=== PATIENT | female | born 1995 | race Caucasian/White ===

== ENCOUNTER 2020-04-03 17:15 | Outpatient (REF) | payer MEDICAID, SELFPAY ==
[2020-04-03 18:28] LABS: Basophils Percent Auto 0.4 % (0-2); Eosinophils Absolute Auto 0.1 X10*3/uL (0.0-0.4); Eosinophils Percent Auto 0.8 % (0-4); Hematocrit 40.3 % (37-47); Hemoglobin 13.2 g/dl (12.0-16.0); Imm Gran Abs Auto 0.02 X10*3/uL (0.00-0.03); Imm Gran Pct Auto 0.2 % (0.0-0.4); Lymphocytes Absolute Auto 1.9 X10*3/uL (1.2-4.9); Lymphocytes Percent Auto 23.1 % (20-40); MANUAL DIFF FLAG NO; Mean Corpuscular HGB Conc 32.8 g/dl (31.0-35.0); Mean Corpuscular Hemoglobin 29.8 pg (27.0-33.0); Monocytes Absolute Auto 0.5 X10*3/uL (0.1-1.2); Monocytes Percent Auto 6.3 % (2-11); Neutrophils Absolute Auto 5.7 X10*3/uL (2.0-8.3); Neutrophils Percent Auto 69.2 % (45-73); Platelet Count 340 X10*3/uL (160-400); Red Blood Count 4.43 X10*6/uL (4.20-5.50); Red Cell Distribution Width 11.9 % (11.0-16.0); White Blood Count 8.2 X10*3/uL (4.8-10.8)
[2020-04-03 18:46] LABS: Alanine Aminotransferase 10 U/L (0-31); Albumin Level 4.6 g/dL (3.5-5.0); Alkaline Phosphatase 85 U/L (39-117); Anion Gap 12 (12-20); Aspartate Amino Transferase 13 U/L (5-31); Bilirubin Total 0.4 mg/dL (0.0-1.0); Blood Urea Nitrogen 11 mg/dL (9-16); C Reactive Protein 0.12 mg/dL (< or = 0.50); Calcium 9.5 mg/dL (8.4-10.2); Carbon Dioxide 29 mmol/L (22-29); Chloride 103 mmol/L (96-108); Estimated Glomerular Filt Rate > 60; Glucose Random 77 mg/dL (60-115); Potassium 3.9 mmol/l (3.3-5.1); Sodium 140 mmol/L (135-145); Total Protein 7.8 g/dL (6.5-8.0)
[2020-04-03 19:35] LABS: Erythrocyte Sedimentation Rate 16 MM/HR (0-20)
[2020-04-03 19:53] LABS: CDIFF Ag Negative (Negative); CDIFF Internal ctrl Dots and bkg OK (V); CDiff Toxin Negative (Negative)
[2020-04-05 17:07] LABS: Immunoglobulin A 247 mg/dL (47-310)
[2020-04-06 22:10] LABS: Transglutaminase Ab IgG 1 U/mL; Transglutaminase IgA 1 U/mL
[2020-04-07 15:01] LABS: Gliadin Deamidated IgA Ab 4 Units; Gliadin Deamidated IgG Ab 2 Units
[2020-04-10 13:02] LABS: Endomysial IgA Antibody Negative (Negative)
== END 2020-04-03 17:16 | disposition home or self-care (01) ==
LOC: HO.LAB 17:15
PROVIDERS: Visit Provider Internal Medicine Gastroenterology
DX: K92.1 Melena (principal)
CPT/HCPCS: 36415; 80053; 82784; 83516; 83631; 85025; 85652; 86140; 86255; 86256; 87324; 87329; 87338; 87449

== ENCOUNTER → 2020-04-11 13:34 | Outpatient (BNVA) | payer MEDICAID, SELFPAY | PROVIDERS: Visit Provider Internal Medicine Gastroenterology | DX: K52.9 Noninfective gastroenteritis and colitis, unspecified (principal); K29.70 Gastritis, unspecified, without bleeding; K64.8 Other hemorrhoids; Z98.890 Other specified postprocedural states | CPT/HCPCS: 99212 ==

== ENCOUNTER 2020-04-17 16:54 | Outpatient (REF) | payer MEDICAID, SELFPAY | END 2020-04-17 16:55 | disposition home or self-care (01) | LOC: HO.LAB 16:54 | PROVIDERS: Visit Provider Internal Medicine | DX: Z20.828 Contact with and (suspected) exposure to other viral communicable diseases (principal) | CPT/HCPCS: 87635 ==

== ENCOUNTER → 2020-05-27 08:10 | Outpatient (BNVA) | payer MEDICAID, SELFPAY | PROVIDERS: PCP Internal Medicine; Visit Provider Internal Medicine Gastroenterology | DX: Z76.89 Persons encountering health services in other specified circumstances (principal) | CPT/HCPCS: 91110 ==

== ENCOUNTER → 2020-06-16 11:58 | Outpatient (BNVA) | payer MEDICAID, SELFPAY | PROVIDERS: PCP Internal Medicine; Referring Provider Internal Medicine; Visit Provider Internal Medicine Gastroenterology | DX: Z76.89 Persons encountering health services in other specified circumstances (principal) ==

== ENCOUNTER 2020-08-21 12:30 | Outpatient (REF) | payer MEDICAID, SELFPAY | END 2020-08-21 12:31 | disposition home or self-care (01) | LOC: HO.LAB 12:30 | PROVIDERS: Visit Provider Internal Medicine | DX: Z20.822 Contact with and (suspected) exposure to COVID-19 (principal) | CPT/HCPCS: 36415; C9803; U0003; U0005 ==

== ENCOUNTER 2020-11-12 11:57 | Outpatient (REF) | payer MEDICAID, SELFPAY ==
[2020-11-12 12:24] LABS: COVID-19 Test Negative (Negative)
== END 2020-11-12 11:58 | disposition home or self-care (01) ==
LOC: HO.LAB 11:57
PROVIDERS: Visit Provider Internal Medicine
DX: Z20.822 Contact with and (suspected) exposure to COVID-19 (principal)
CPT/HCPCS: 36415; 87635; C9803

== ENCOUNTER 2021-05-10 17:55 | Emergency (ER) | payer MEDICAID, SELFPAY ==
--- NOTE | ~2021-05-10 | CT_ITS ---
EXAMINATION: CT HEAD WITHOUT CONTRAST CT FACIAL BONES WITHOUT CONTRAST CT CERVICAL SPINE WITHOUT CONTRAST CLINICAL INFORMATION: Head trauma. Soft trauma with laceration. Fracture? Softball trauma. COMPARISON: None. TECHNIQUE: Imaging was performed from the skull base to vertex without intravenous administration of contrast. In addition, helical noncontrast CT imaging was acquired through the cervical spine and facial bones and source images were reviewed along with axial reconstructions and sagittal and coronal MPRs. This CT examination was performed using dose optimization techniques as appropriate, variously including the following: *Automated exposure control *Adjustment of mA and/or kV according to patient size (this includes techniques or standardized protocols for targeted exams where dose is matched to indication/reason for exam; i.e. extremities or head) *Use of iterative reconstruction technique Total exam dose-length product [id number] mGy-cm FINDINGS: HEAD: No intracranial mass, hemorrhage, or midline shift is visualized. The ventricles and sulci are age-appropriate. No extra-axial collections are identified. FACIAL BONES: There is a left frontal laceration with soft tissue gas, series 26 image 28/23. There is a subjacent nutrient channel in the left frontal bone but no fracture. There is bilateral ethmoid and frontal sinus mucosal thickening. Right maxillary sinus mucosal thickening and a mucosal cyst or polyp are seen. No evidence of acute sinusitis or hemosinus. CERVICAL SPINE: Straightening of the normal cervical lordosis. Normal prevertebral soft tissues. No fracture or traumatic malalignment. No cervical lymphadenopathy or fluid collection. Lung apices are clear. CT/CT cervical spine wo con IMPRESSION: Left frontal supraorbital soft tissue swelling and soft tissue gas consistent with a laceration. No orbital or facial fracture seen. No acute intracranial abnormality. No acute traumatic osseous abnormality of the cervical spine.
[2021-05-10 18:00] VITALS: BP 131/74; PULSE 99; RESP 18; TEMP 36.2; O2SAT 98; BMI 28.3
--- NOTE | 2021-05-10 18:41 | ED_ITS ---
HPI - Wound/Laceration General Chief Complaint: Wound/Laceration Stated Complaint: eyebrow lac Time Seen by Provider: 05/10/21 18:20 Source: patient Mode of arrival: ambulatory Limitations: no limitations History of Present Illness HPI narrative: 26-year-old female presents to ED for left forehead laceration due to being hit by softball. Patient states ball was hit by batter and hit the ground and wound up hitting her in the head. Patient denies falling to the ground or loss of consciousness. Patient unknown last tetanus shot. Patient denies any history of brain bleed. Related Data Previous Rx's Medication Instructions Recorded bisacodyl 5 mg tablet,delayed 10 mg PO ONCE 1 Days #2 tab 05/20/20 release (Dulcolax (bisacodyl)) polyethylene glycol 3350 17 238 g PO .COMPLEX 1 Days #238 g 05/20/20 gram/dose oral powder (Miralax) rifaximin 550 mg tablet 550 mg PO TID 14 Days #42 tab 06/23/20 ciprofloxacin HCl 500 mg tablet 500 mg PO BID 14 Days #28 tab 09/02/20 (Cipro) Allergies Allergy/AdvReac Type Severity Reaction Status Date / Time No Known Allergies Allergy Verified 05/10/21 18:00 [No Known Allergies*] Review of Systems Review of Systems: Yes all other systems are reviewed and are negative Constitutional: Constitutional: Reports as per HPI and Reports no additional constitutional complaints Comments: Facial laceration Eyes: Eyes: Reports as per HPI and Reports no additional eye complaints ENT: Reports system reviewed and no additional complaints, except as documented and Reports as per HPI Cardiovascular: Cardiovascular: Reports as per HPI and Reports no additional cardiovascular complaints Respiratory: Respiratory: Reports as per HPI and Reports no additional respiratory complaints Gastrointestinal: Gastrointestinal: Reports as per HPI and Reports no additional gastrointestinal complaints Genitourinary: Genitourinary: Reports no additional female genitourinary complaints and Reports as per HPI Musculoskeletal: Musculoskeletal: Reports no additional musculoskeletal complaints and Reports as per HPI Neurologic: Reports system reviewed and no additional complaints, except as documented and Reports as per HPI Psychiatric: Psychiatric: Reports no additional psychiatric complaints and Reports as per HPI PMFSH Past Medical History Surgical History (Updated 06/16/20 @ 11:59 by Anna Saucedo CMA) History of colonoscopy Hx of anterior cruciate ligament tear reconstruction Hx of endoscopy Family History Family History (Updated 04/11/20 @ 14:13 by Anna Saucedo CMA) Father History of hypertension Mother No problems noted. Social History Social History (Updated 06/16/20 @ 11:59 by Anna Saucedo CMA) Alcohol intake: current Alcohol intake frequency: holidays/special occasions only Advance Directives: No Advance Directives Information Provided: No Patient : No Physical Exam Vital Signs: Vital Signs: Last Vital Signs Temp 97.2 F 05/10/21 18:00 Pulse 99 05/10/21 18:00 Resp 18 05/10/21 18:00 BP 131/74 05/10/21 18:00 Pulse Ox 98 05/10/21 18:00 Body Mass Index 28.3 Const: General: cooperative, healthy appearing, comfortable, no acute distress, well developed, alert, awake and Physically active Orientation/consciousness: patient oriented x3 HENMT: Head: Yes normal to inspection, Yes No palpable skull fracture present and Yes normocephalic Head images: 1. Superficial laceration with active bleeding. Rest of HEENT normal Eyes: General: appearance normal, both eyes and all related structures Neck: Neck: Yes normal visual inspection, Yes full ROM, Yes no ly mphadenopathy, Yes no meningeal signs, Yes trachea midline, Yes supple and No tender Chest: Chest palpation & inspection: normal inspection of the chest and normal palpation of entire chest wall Resp: Effort & Inspection: normal respiratory effort and able to speak in complete sentences Auscultation: clear to auscultation bilaterally Cardio: Jugular venous distension: no JVD Heart sounds: S1 normal heart sound present and S2 normal heart sound present GI: Inspection: Yes normal to inspection and No abdominal wall ecchymosis Palpation (GI): Soft to palpation, not firm, nontender, no guarding and not rigid : General: No CVA tenderness and Yes no CVA tenderness Back/Spine/Pelvis: Back: no CVA tenderness, No CVA tenderness and No back tenderness Skin: General skin exam: no rashes or lesions noted and elasticity normal Neuro: General: patient oriented x3, gait normal, no meningeal signs and CN's II-XI intact bilaterally Cranial nerves: Yes CN's II-XII intact bilaterally Extrem: General: Yes normal to inspection and Yes full ROM Psych: Appearance: grossly normal, well kempt and not disheveled Course Course Course Narrative: Patient of images and left eyebrow laceration repair. Reevaluation(s) Reevaluation #1: CT scan came back negative for any facial fractures, skull fracture or brain bleed. Facial laceration cleaned with sterile saline Betadine iodine. 5 mL of lidocaine 2% anesthesia was used into wound. 1 absorbable suture placed in deep tissue for better closure size 4 nylon suture used for superifcial layers. Five sutures placed. Time: 20:26 MDM - Wound/Laceration MDM Narrative Medical decision making narrative: Facial laceration Discharge Plan Discharge Clinical Impression: Laceration of face Patient Disposition: Home, Self-Care Instructions: Laceration (ED) Additional Instructions: Your facial laceration should be removed in 7 days. Return to the ED for any headache, dizziness, nausea, vomiting, redness, pus discharge, foul odor, fever, chills, or any other concerning symptoms. Please follow-up with primary care provider Prescriptions: No Action polyethylene glycol 3350 [Miralax] 17 gram/dose powder 238 g PO .COMPLEX 1 Days Qty: 238 RF: 0 bisacodyl [Dulcolax (bisacodyl)] 5 mg tablet,delayed release (DR/EC) 10 mg PO ONCE 1 Days Qty: 2 RF: 0 rifaximin 550 mg tablet 550 mg PO TID 14 Days Qty: 42 RF: 0 ciprofloxacin HCl [Cipro] 500 mg tablet 500 mg PO BID 14 Days Qty: 28 RF: 0 Interventions: ED Discharge Assessment Last Done: 05/10/21 20:33 Discharge Date/Time: 05/10/21 20:46 Print Language: Romansh
[2021-05-10] MEDS: Diphth,Pertus(ACell),Tet Adult 0.5 ML SYRINGE IM (19:11)
[2021-05-10] MEDS: Lidocaine HCl 2 % MPF 5 ML VIAL INFILTRATI (19:16)
== END 2021-05-10 20:46 | disposition home or self-care (01) ==
PROVIDERS: Emergency Provider Internal Medicine
DX: S01.81XA Laceration without foreign body of other part of head, initial encounter (principal); W21.07XA Struck by softball, initial encounter; Y93.9 Activity, unspecified; Y92.9 Unspecified place or not applicable; Y99.9 Unspecified external cause status
CPT/HCPCS: 12051; 70450; 70486; 72125; 90471; 90715; 99284

== ENCOUNTER 2021-05-19 08:50 | Emergency (ER) | payer MEDICAID, SELFPAY ==
[2021-05-19 08:58] VITALS: BP 104/66; PULSE 82; RESP 18; TEMP 36.4; O2SAT 97; BMI 28.3
--- NOTE | 2021-05-19 09:19 | ED.WOUNDLAC ---
HPI - Wound/Laceration General Chief Complaint: Wound/Laceration Stated Complaint: suture removal Time Seen by Provider: 05/19/21 09:09 Source: patient Mode of arrival: ambulatory Limitations: no limitations History of Present Illness HPI narrative: 26-year-old female presenting for suture removal. She was seen here on May 10 when she was struck in the left eye with a softball effort ricocheted off a rock. She sustained a laceration above her left eyebrow and required 5 sutures for wound closure in addition to 1 deep absorbable suture. She reports adequate wound healing without any redness, warmth or drainage. She has been using topical Mederna for scarring. Onset (ago): day(s) Location: face Place: outdoors Patient tetanus UTD: Yes Context: accidental Associated symptoms: loss of feeling/numbness Treatments prior to arrival: bandage and other (topical scarring ointment) Related Data Previous Rx's Medication Instructions Recorded bisacodyl 5 mg tablet,delayed 10 mg PO ONCE 1 Days #2 tab 05/20/20 release (Dulcolax (bisacodyl)) polyethylene glycol 3350 17 238 g PO .COMPLEX 1 Days #238 g 05/20/20 gram/dose oral powder (Miralax) rifaximin 550 mg tablet 550 mg PO TID 14 Days #42 tab 06/23/20 ciprofloxacin HCl 500 mg tablet 500 mg PO BID 14 Days #28 tab 09/02/20 (Cipro) Allergies Allergy/AdvReac Type Severity Reaction Status Date / Time No Known Allergies Allergy Verified 05/10/21 18:00 [No Known Allergies*] Review of Systems Review of Systems: Constitutional: No Fever, No Chills Eyes: No Eye Pain, No Swelling, No Redness Gastrointestinal: No Nausea, No Vomiting Skin: +Skin Lesions, No rash Neuro: + Numbness, No Dizziness, No Headache Psych: + Anxiety/Panic, No Depression Heme/Lymph: No Bruising, No Lymphadenopathy PMFSH Past Medical History Medical History (Updated 05/19/21 @ 09:20 by JASPAL Gomez) No known health problems Surgical History (Updated 06/16/20 @ 11:59 by Anna Saucedo CMA) History of colonoscopy Hx of anterior cruciate ligament tear reconstruction Hx of endoscopy Family History Family History (Updated 04/11/20 @ 14:13 by Anna Saucedo CMA) Father History of hypertension Mother No problems noted. Social History Social History (Updated 06/16/20 @ 11:59 by Anna Saucedo CMA) Alcohol intake: current Alcohol intake frequency: holidays/special occasions only Advance Directives: No Physical Exam Vital Signs: Vital Signs: Last Vital Signs Temp 97.5 F 05/19/21 08:58 Pulse 82 05/19/21 08:58 Resp 18 05/19/21 08:58 BP 104/66 05/19/21 08:58 Pulse Ox 97 05/19/21 08:58 Body Mass Index 28.3 Appearance: Alert. Oriented X3. No acute distress. HEENT: well healing linear laceration above left eyebrow with [address], wound margins are well approximated and healing appropriately. No erythema, discharge. Wound is tender to palpation. CVS: Normal heart rate and rhythm. Pulses normal. Respiratory: No respiratory distress. Skin: Skin warm and dry. Normal skin color. Normal skin turgor. No rashes. Extremities: atraumatic x4, normal ROM Neuro: Oriented X 3. Grossly normal, nonfocal. Course Course Course Narrative: 26-year-old female presenting for suture removal. She had 5 sutures placed on May 10. Wound is healing appropriately. She is upset with the redness and scarring. She is using topical scarring cream. We discussed additional measures a computed help scarring. All 5 sutures were successfully removed with appropriate wound healing. She is stable for discharge home with outpatient follow-up as needed. Critical Care Time Critical Care Time Critical Care Time: No Discharge Plan Discharge Clinical Impression: Encounter for removal of sutures Patient Disposition: Home, Self-Care Instructions: Stitches Removal (ED) Additional Instructions: Can you to use topical ointment for scarring found [id number], uses several times per day. Uses for several weeks to months to help with scarring. Follow-up with your doctor as needed. Prescriptions: No Action polyethylene glycol 3350 [Miralax] 17 gram/dose powder 238 g PO .COMPLEX 1 Days Qty: 238 RF: 0 bisacodyl [Dulcolax (bisacodyl)] 5 mg tablet,delayed release (DR/EC) 10 mg PO ONCE 1 Days Qty: 2 RF: 0 rifaximin 550 mg tablet 550 mg PO TID 14 Days Qty: 42 RF: 0 ciprofloxacin HCl [Cipro] 500 mg tablet 500 mg PO BID 14 Days Qty: 28 RF: 0 Interventions: ED Discharge Assessment Last Done: 05/19/21 09:26 Discharge Date/Time: 05/19/21 09:27
== END 2021-05-19 09:27 | disposition home or self-care (01) ==
PROVIDERS: Emergency Provider Emergency Medicine Emergency Medical Services
DX: Z48.02 Encounter for removal of sutures (principal)
CPT/HCPCS: 99283

== ENCOUNTER 2025-04-17 09:54 | Outpatient (REF) | payer MEDICAID, SELFPAY ==
--- OUTSIDE RECORDS SUMMARY | 2025-04-17 09:15 | XMS_ITS | Encounter Summary ---
Author Organization [email or web address] Address [address] [place] [address] [address], [place] [address] Care Team Providers Care Communication Signals Intelligence Name Role Phone Frances Norris MD Primary Care Provider + Encounter Details Date Type Department Care Team (Late st Contact Info) Description 04/17/2025 9:15 AM EDT Office Visit [facility] [address] [place] [address] Winifred Marsh CNM [address], [place] [id number] Vaginal odor (Primary Dx); Rash; Screening examination for venereal disease; Routine cervical smear Social History Tobacco Use Types Packs/Day Years Used Date Smoking Tobacco: Never Passive Smoke Exposure: Never Smokeless Tobacco: Never Alcohol Use Standard Drinks/Week Comments Never 0 (1 standard drink = 0.6 oz pur e alcohol) Depression Answer Date Recorded Patient Health Questionnaire-9 Score 0 12/15/2022 Housing Stability Answer Date Recorded What is your housing situation today? I have angelo daly 05/09/[address] you li ve. Do you have problems with any of the following? None of the above 05/09/2023 Food Insecurity Answer Date Recorded Within the past 12 months, y ou worried that your food would run out before you got money to buy more: Never True 05/09/2023 Within the past 12 months,th e food you bought just didn't last and you didn't have enough money to get more: Never True 12/2022 Transportation Answer Date Recorded In the past 12 months, has l ack of transportation kept you from medical appts, meetings, work or from getting things needed for daily living? No 05/09/2023 Utilities Answer Date Recorded In the past 12 months, has t he electric, gas, oil or water company threatened to shut off services in your home? No 05/09/2023 Depression Answer Date Recorded Patient Health Questionnaire-2 Score 0 12/15/2022 Comments Unknown Intention Date Recorded Ambivalent about becoming (find ing) 04/17/2025 Sex and Gender Information Value Date Recorded Sex Assigned at Female 05/03/2022 10:24 AM EDT Legal Sex Female 10:24 AM EDT Gender Identity Female 11/15/2022 6:15 PM EDT Sexual Orientation Choose not to disclose 2022 6:18 PM EDT documented as of this encounter Last Filed Vital Signs Vital Sign Reading Time Taken Comments Blood Pressure 100/70 04/17/2025 9:33 AM EDT Pulse 82 04/17/2025 9:33 AM EDT Temperature 36.3 C (97.4 F) 04/17/2025 9:33 AM EDT Respiratory Rate 13 04/17/2025 9:33 AM EDT Oxygen Saturation 97% 04/17/2025 9:33 AM EDT Inhaled Oxygen Concentration - - Weight 80.7 kg (178 lb) 04/17/2025 9:33 AM EDT Height - - Body Mass Index - - documented in this encounter Progress Notes * Winifred Marsh CNM - 04/17/2025 9:15 AM EDT Subjective Patient ID: Warren Demacro is a 29 y.o. female who presents for vaginal symptoms Notes vaginal odor and genital skin changes for a while. No other vaginal, urinary or pelvic symptoms. 1 new AMAB partner, would like STI testing today. Declines control. Also notes chronic stomach issues, would like followup on this. No pap on file. She thinks last pap was at [facility] 2 y ago. Agrees to pap today. Review of Systems Genitourinary: Negative for dyspareunia, dysuria, hematuria, pelvic pain, vaginal bleeding, vaginaldischarge and vaginal pain. Skin: Positive for rash. Objective BP 100/70 (BP Location: Left arm, Patient Position: Sitting, BP Cuff Size: Adult) Pulse 82 Temp97.4 ??F (36.3 ??C) (Oral) Resp 13 Wt 178 lb (80.7 kg) LMP 03/17/2025 (Approximate) SpO2 97% Physical Exam Scrape Gatherer present: declines lens inserter. Constitutional: Appearance: Normal appearance. Genitourinary: General: Normal vulva. Labia: Right: No rash, tenderness, lesion or injury. Left: No rash, tenderness, lesion or injury. Vagina: Normal. No signs of injury and foreign body. No vaginal discharge, erythema, tenderness, bleeding or lesions. Cervix: No discharge, friability, lesion, erythema, cervical bleeding or eversion. Rectum: Anal fissure and external hemorrhoid present. Comments: Scaly plaque above clitoral rodriguez, possible eczema [place] skin with anal fissue Skin: Comments: 2-3cm area of pink skin above gluteal cleft. She reports this is very itchy, area of skinhad sloughed off. No exudate or streaking Neurological: Mental Status: She is alert. Psychiatric: Mood and Affect: Mood normal. Behavior: Behavior normal. Assessment/Plan Diagnoses and all orders for this visit: Vaginal odor - POCT fern test, vaginal fluid manually resulted No obvious vaginitis on wet mount. Will treat bacterial vaginosis/ yeast if noted on pap. Pap basedSTI testing sent today. Rash Possible eczema. For short course of hydrocortisone ointment. Avoid scented products. Followup withPCP or WIC if no improvement in 1-2 weeks or if symptoms worsen. Screening examination for venereal disease - Hepatitis C Antibody with Reflex to HCV, RNA, Quantitative, Real-Time PCR; Future - Syphilis Screen; Future - HIV-1/2 Antigen and Antibodies, Fourth Generation, with Reflexes; Future Pap based and serum labs ordered. Briefly discussed PrEP. May return any time if interested. Routine cervical smear - Pap Smear Pap today. Repeat 3 y if normal. Other orders - hydrocortisone 1 % ointment; Apply topically 2 times daily. Schedule appointment with PCP af front office java developer to followup on GI concerns. documented in this encounter Plan of Treatment Upcoming Encounters Date Type Department Care Team (Late st Contact Info) Description 06/12/2025 10:30 AM EST Office Visit [facility] [address] [place] [address] Frances Norris MD [address] [place] [address] Scheduled Orders Name Type Priority Associated Diagnoses Orde r Schedule Pap Smear Pathology and Cytology Routine Routine cervical smear Ordered: 04/17/2025 Hepatitis C Antibody with Reflex to HCV, RNA, Quantitative, Real-Time PCR Lab Routine Screening examination for venereal disease Expected: 04/17/2025 (Approximate), Expires: 04/17/2026 Syphilis Screen Lab Routine Screening examination for venereal disease Expected: 04/17/2025 (Approximate), Expires: 04/17/2026 HIV-1/2 Antigen and Antibodies, Fourth Generation, with Reflexes Lab Routine Screening examination for venereal disease Expected: 04/17/2025 (Approximate), Expires: 04/17/2026 documented as of this encounter Procedures Procedure Name Priority Date/Time Associated Diagnosis Comments POCT WET MOUNT/WILDA Routine 04/17/2025 9: 58 AM EDT Vaginal odor documented in this encounter Results * POCT fern test, vaginal fluid manually resulted (04/17/2025 9:58 AM EDT) WILDA Prep Negative Comment:pH 4.5, neg whiff, n eg clue, neg trich, neg yeast, neg wbc Vaginal Fluid Vaginal structure / Unknown 04/17/2025 9:58 AM EDT Winifred Marsh CNM POINT OF CARE TEST ENTER/ EDIT ORDERABLES Final Result documented in this encounter Visit Diagnoses Diagnosis Vaginal odor- Primary Unspecified symptom associated with female genital organs Rash Rash and other nonspecific skin eruption Screening examination for venereal disease Routine cervical smear Screening for malignant neoplasm of the cervix documented in this encounter Additional Health Concerns Assessment Noted Time PHQ-9 Depression Total Score: 0 12/16/19 23 11:40 AM EDT documented as of this encounter Care Teams Communication Signals Intelligence Relationship Specialty Start Date End Date Frances Norris MD [address] [place] [id number] PCP - General Internal Medicine 12/30/23 documented as of this encounter
--- OUTSIDE RECORDS SUMMARY | 2025-04-17 11:41 | XMS_ITS | Clinical Summary ---
Author Organization [facility] Address [address] [place] [id number] Phone Care Team Providers Care Still Runner Name Role Phone Pcp, Unknown Primary Care Provider Unavailabl e Allergies No known active allergies Medications No known medications Active Problems Problem Noted Date Diagnosed Date Frequent bowel movements 07/29/2023 Overview (07/29/2023): Sudden onset of frequent bowel movements, triggered anytime she eats without watery diarrhea Assessment & Plan (07/29/2023 1:07 PM EST): No relationship to menstrual cycle, she was hoping to see a scrap charger. I have recommended she try eliminating all dairy for 4 weeks and reassess her symptoms. If it is not effective try eliminating all gluten. She has seen GI in the past has had colonoscopy no etiology found. Social History Tobacco Use Types Packs/Day Years Used Date Smoking Tobacco: Never Smokeless Tobacco: Never Tobacco Cessation:Counseling Given: Not Answered Alcohol Use Standard Drinks/Week Comments Not Currently 0 (1 standard drink = 0.6 oz pur e alcohol) socially Education Answer Date Recorded Are you interested in more education? Not on jones e 07/26/2023 Are you concerned about learning? Not on file 07/26/2023 No 07/26/2023 No 07/26/2023 Digital Access Answer Date Recorded No 07/26/2023 No 07/26/2023 Reliable internet access at home? Not on file 07/26/2023 Device with a working camera? Not on file Comments No Sex and Gender Information Value Date Recorded Sex Assigned at Not on file Legal Sex Female 2:12 PM EST Gender Identity Female 07/27/2023 3:38 PM EST Sexual Orientation Not on file Last Filed Vital Signs Vital Sign Reading Time Taken Comments Blood Pressure 106/76 07/29/2023 10:19 AM EST Pulse - - Temperature - - Respiratory Rate - - Oxygen Saturation - - Inhaled Oxygen Concentration - - Weight 79.8 kg (176 lb) 07/29/2023 10:19 AM EST Height - - Body Mass Index - - Plan of Treatment Health Maintenance Due Date Last Done Comments DEPRESSION SCREENING 2008 HEPATITIS C SCREENING 2014 HIV ONE-TIME SCREENING (18-6 5 YEARS) 2014 PAP SMEAR 2017 INFLUENZA VACCINE (#1) 2025 9, 09/09/2015 COVID-19 VACCINE (2024-2 6 season) 2025 Adult Td,Tdap Booster 05/10/2031 05/10/2021 , 06/19/2019, 07/03/2009 SMOKING STATUS SCREENING (On ce After 26 Yrs) Completed 07/29/2023 HEPATITIS A VACCINES Aged Out No long er eligible based on patient's age to complete this topic HIB VACCINES Aged Out No longer eligi ble based on patient's age to complete this topic MENINGOCOCCAL VACCINES (ACWY) Aged Out No longer eligible based on patient's age to complete this topic MENINGOCOCCAL VACCINES (B) Aged Out N o longer eligible based on patient's age to complete this topic PNEUMOCOCCAL VACCINES (0-49 years) Aged Out No longer eligible b ased on patient's age to complete this topic Medical Devices Not on file Insurance [facility] C3 ACO C3 ACO C3 ACO [facility] C3 ACO Care Teams Still Runner Relationship Specialty Start Date End Date Pcp, Unknown PCP - General 07/26/23 Additional Source Comments The information contained in this document represents components of the legal health record. It is not the complete legal health record.[facility]
--- OUTSIDE RECORDS SUMMARY | 2025-04-17 11:41 | XMS_ITS | Encounter Summary ---
Author Organization [employer] Address [address] [facility] [address] [place] [address] Care Team Providers Care Rail Car Loader Name Role Phone Frances Norris MD Primary Care Provider + Encounter Details Date Type Department Care Team (Latest Contact Info) Description 04/17/2025 Travel Social History Tobacco Use Types Packs/Day Years Used Date Smoking Tobacco: Never Passive Smoke Exposure: Never Smokeless Tobacco: Never Alcohol Use Standard Drinks/Week Comments Never 0 (1 standard drink = 0.6 oz pur e alcohol) Depression Answer Date Recorded Patient Health Questionnaire-9 Score 0 12/15/2022 Housing Stability Answer Date Recorded What is your housing situation today? I have angelo kauffman 05/09/[address] you li [...] Health Questionnaire-2 Score 0 12/15/2022 Comments Unknown Sex and Gender Information Value Date Recorded Sex Assigned at Female 05/03/2022 10:24 AM EDT Legal Sex Female 10:24 AM EDT Gender Identity Female 11/15/2022 6:15 PM EDT Sexual Orientation Choose not to disclose 2022 6:18 PM EDT documented as of this encounter Plan of Treatment Upcoming Encounters Date Type Department Care Team (Late st Contact Info) Description 06/12/2025 10:30 AM EST Office Visit [facility] MED[facility] [address] [place] [address] Frances Norris MD [address] [place] [address] documented as of this encounter Visit Diagnoses Not on filedocumented in this encounter Additional Health Concerns Assessment Noted Time PHQ-9 Depression Total Score: 0 12/16/19 23 11:40 AM EDT documented as of this encounter Care Teams Rail Car Loader Relationship Specialty Start Date End Date Frances Norris MD [address] [place] [phone] PCP - General Internal Medicine 12/30/23 documented as of this encounter
--- OUTSIDE RECORDS SUMMARY | 2025-04-17 11:41 | XMS_ITS | Encounter Summary ---
Author Organization [employer] Address [address] [place] [address] [address] [address] Care Team Providers Care Strategic Intelligence Officer Name Role Phone Frances Norris MD Primary Care Provider + Reason for Visit * Reason Onset Date Comments chart prep 04/16/2025 Encounter Details Date Type Department Care Team (Late st Contact Info) Description 04/16/2025 Telephone [facility] MEDICINE [address] [place] [address] Winifred Marsh CNM [address] [place] [address] chart prep Social History Tobacco Use Types Packs/Day Years Used Date Smoking Tobacco: Never Passive Smoke Exposure: Never Smokeless Tobacco: Never Alcohol Use Standard Drinks/Week Comments Never 0 (1 standard drink = 0.6 oz pur e alcohol) Depression Answer Date Recorded Patient Health Questionnaire-9 Score 0 12/15/2022 Housing Stability Answer Date Recorded What is your housing situation today? I have angelojonnie kauffman 05/09/[address] you [...] PM EDT documented as of this encounter Miscellaneous Notes * Telephone Encounter - Perla Saucedo [place] - 04/16/2025 12:42 PM EDT ..Chart Prep Labs: not applicable Images: not applicable Vaccines due: Covid Due and Flu Due Referrals: Not Applicable Screenings: LMP Overdue care gaps: Sbirt, SDOH, PHQ9, GAD7, and Disability documented in this encounter Plan of Treatment Upcoming Encounters Date Type Department Care Team (Late st Contact Info) Description 06/12/2025 10:30 AM EST Office Visit [facility] MEDICINE [address] [place] [address] Frances Norris MD [address] [place] [address] documented as of this encounter Visit Diagnoses Not on filedocumented in this encounter Additional Health Concerns Assessment Noted Time PHQ-9 Depression Total Score: 0 12/16/19 23 11:40 AM EDT documented as of this encounter Care Teams Strategic Intelligence Officer Relationship Specialty Start Date End Date Frances Norris MD [address] [place] [phone] PCP - General Internal Medicine 12/30/23 documented as of this encounter
--- OUTSIDE RECORDS SUMMARY | 2025-04-17 11:41 | XMS_ITS | Clinical Summary ---
Author Organization [facility] Address [address] [place] [address] Phone Care Team Providers Care Director Of Publications Name Role Phone Unavailable Primary Care Provider Unavailabl e Immunizations Immunization Administration Dates Next Due DTaP 5 10/17/2001, 8,1996,10/11,1996 H1N1 07/03/2009 HPV, Quadrivalent 09/04/2012,01/15/2011,07/03/20 09 Hep A, ped/adol 09/26/2014,01/15/2011 Hep B, ped/adol 1996,1996,1996 Hib (PRP-T) 10/28/1997, 7,1996,08/07 IPV 10/17/2001 Influenza Split 09/04/2012 Influenza, injectable, quadr ivalent, preservative free 04/05/2014 Influenza, injectable, trivalent 07/03/2009 MMR 10/12/2001,04/19/1997 Meningococcal Conj (Menactra) MCV4P 09/26/2014,1 OPV 1996,1996,1996 Tdap 07/03/2009 Family History Relation Name Status Comments Brother Alive Brother: Alive and well Father Alive Father: Hyperte nsion Mother Mother: Osteoar thritis, Hypertension, Asthma Other No family histo ry of *Sudden /[place] under 55, No family history of *Dental caries, No family history of *CVA/Stroke, No family history of *Thrombophilia, Family history of *Heart Disease Sister 1 Alive Sister: Asthma, Hypertension Sister 2 Sister: Asthma, Hypertension Social History Tobacco Use Types Packs/Day Years Used Date Smoking Tobacco: Never Comments:Never smoker Comments Unknown Sex and Gender Information Value Date Recorded Sex Assigned at Not on file Legal Sex Female 4:53 PM EDT Gender Identity Not on file Sexual Orientation Not on file Last Filed Vital Signs Vital Sign Reading Time Taken Comments Blood Pressure 102/68 09/26/2014 12:00 AM EDT Pulse 72 09/26/2014 12:00 AM EDT Temperature 37.1 C (98.7 F) 04/05/2014 12:00 AM EDT Respiratory Rate - - Oxygen Saturation - - Inhaled Oxygen Concentration - - Weight 64.9 kg (143 lb) 09/26/2014 12:00 AM EDT Height 163.6 cm (5' 4.4 ) 09/26/2014 12:00 AM ED T Body Mass Index 24.24 09/26/2014 12:00 AM EDT Plan of Treatment Health Maintenance Due Date Last Done Comments Varicella Vaccines (1 of 2 - 13+ 2-dose series) 2009 DTaP,Tdap,and Td Vaccines (7 - Td or Tdap) 07/03/2019 07/03/2009, 10/17/2001, 10/28/1997, Additional history exists Influenza Vaccines (#1) 2025 04/05/20 14, 09/04/2012, 07/03/2009 COVID-19 Vaccine (2024- season) 2025 Hepatitis B Vaccines Completed 1996, 1996, 1996 HIB Vaccines Completed 10/28/1997, 12/02, 1996, Additional history exists MMR Vaccines Completed 10/12/2001, 04/19/1997 IPV Vaccines Completed 10/17/2001, 12/02, 1996, Additional history exists HPV Vaccines Completed 09/04/2012, 01/01, 07/03/2009 Hepatitis A Vaccines Completed 09/26/2014, 01/16/20 11 Meningococcal Vaccine Completed 09/26/2014, 009 Men B Vaccine Aged Out No longer elig ible based on patient's age to complete this topic Pneumococcal Vaccine Aged Out No long er eligible based on patient's age to complete this topic
--- OUTSIDE RECORDS SUMMARY | 2025-04-17 11:41 | XMS_ITS | Encounter Summary ---
Author Organization [facility] Address [address] [place] [phone] Phone Care Team Providers Care Tariff Publishing Agent Name Role Phone Simi Edouard MD Primary Care Provider [phone] Encounter Details Date Type Department Care Team (Late st Contact Info) Description 02/17/2017 Conversion Encounter [facility] [place] [address] [place] [address] Social History Tobacco Use Types Packs/Day Years Used Date Smoking Tobacco: Never Comments:Never smoker Comments Unknown Sex and Gender Information Value Date Recorded Sex Assigned at Not on file Legal Sex Female 4:53 PM EDT Gender Identity Not on file Sexual Orientation Not on file documented as of this encounter Plan of Treatment Not on file documented as of this encounter Visit Diagnoses Not on filedocumented in this encounter Care Teams Tariff Publishing Agent Relationship Specialty Start Date End Date Simi Edouard MD [address] [place] [address] PCP - General 02/11/17 10/13/22 documented as of this encounter
--- OUTSIDE RECORDS SUMMARY | 2025-04-17 11:41 | XMS_ITS | Encounter Summary ---
Author Organization [facility] Address [address] [place] [address] Phone Care Team Providers Care Director Of Managed Care Name Role Phone Simi Edouard MD Primary Care Provider [phone] Encounter Details Date Type Department Care Team (Late st Contact Info) Description 01/26/2013 Documentation [facility] [place] [facility] [address] [place] [address] Family Medicine, Physician [address] [place], [place] [address] Social History Tobacco Use Types Packs/Day Years Used Date Smoking Tobacco: Never Assessed Comments Unknown Sex and Gender Information Value Date Recorded Sex Assigned at Not on file Legal Sex Female 4:53 PM EDT Gender Identity Not on file Sexual Orientation Not on file documented as of this encounter Plan of Treatment Not on file documented as of this encounter Visit Diagnoses Not on filedocumented in this encounter Care Teams Director Of Managed Care Relationship Specialty Start Date End Date Simi Edouard MD [address] [place] [address] [place] [address] PCP - General 02/11/17 10/13/22 documented as of this encounter
--- OUTSIDE RECORDS SUMMARY | 2025-04-17 11:41 | XMS_ITS | Encounter Summary ---
Author Organization [facility] Address [address] [place] [phone] Phone Care Team Providers Care Scleroscope Tester Name Role Phone Simi Edouard MD Primary Care Provider [phone] Encounter Details Date Type Department Care Team (Late st Contact Info) Description 01/19/2013 Documentation [facility] [place] [facility] [address] [place] [address] Family Medicine, Physician [address] [place], [place] [phone] Social History Tobacco Use Types Packs/Day Years [...] on filedocumented in this encounter Care Teams Scleroscope Tester Relationship Specialty Start Date End Date Simi Edouard MD [address] [place] [address] [place] [address] PCP - General 02/11/17 10/13/22 documented as of this encounter
--- OUTSIDE RECORDS SUMMARY | 2025-04-17 11:41 | XMS_ITS | Encounter Summary ---
Author Organization [employer] Address [address] [place] [address] [address] Care Team Providers Care Field Sales Trainer Name Role Phone Frances Norris MD Primary Care Provider + Reason for Visit * Reason Onset Date Comments Nurse Triage 04/12/2025 Encounter Details Date Type Department Care Team (Late st Contact Info) Description 04/12/2025 Telephone [facility] MEDICINE [address] [place] [address] Frances Norris MD [address] [place] [address] Nurse Triage Social History Tobacco Use Types Packs/Day Years [...] encounter Miscellaneous Notes * Telephone Encounter - Jaclyn Glynn RN - 04/12/2025 10:56 AM EDT T/C placed to pt to triage. Pt reports change in vaginal odor. Pt states that, it doesn't smell bad, just different . Pt denies vaginal itching or new discharge. Is not on control. Last menseswas around the beginning of last month per pt. Pt reports no new sexual partners, is sexually active but has not had sex, in a long time . Pt also reports, white spots one on clitoral rodriguez and oneat top of intergluteal cleft. She reports Hx of eczema, she doesn't know if they are eczema or not.Pt declined WIC today or tomorrow. Accepted appt for Next Tuesday 04/17 with Winifred BARRAZA. Pt agrees with disposition. Protocol Used: Vaginal Symptoms (Adult) Protocol-Based Disposition: See in Office or Video Visit within 3 Days Positive Triage Question: * Patient wants to be seen * All higher-acuity triage questions were negative Care Advice Discussed: * Causes of Vaginal Odor: * Genital Hygiene * Reasons To Call Back - Rash or severe itching - Yellow or green vaginal discharge - You become worse * Telephone Encounter - Katelyn Delarosa - 04/12/2025 10:31 AM EDT Symptom: Vaginal Symptoms - Not Bleeding Outcome: Schedule an appointment to be seen within 24 hours Reason: Caller denied all higher acuity questions The caller accepted this outcome. Contact pt at [phone] documented in this encounter Plan of Treatment Upcoming Encounters Date Type Department Care Team (Late st Contact Info) Description 06/12/2025 10:30 AM EST Office Visit [facility] MEDICINE [address] [place] [phone] Frances Norris MD [address] [place] [phone] documented as of this encounter Visit Diagnoses Not on filedocumented in this encounter Additional Health Concerns Assessment Noted Time PHQ-9 Depression Total Score: 0 12/16/19 23 11:40 AM EDT documented as of this encounter Care Teams Field Sales Trainer Relationship Specialty Start Date End Date Frances Norris MD [address] [place] [phone] PCP - General Internal Medicine 12/30/23 documented as of this encounter
--- OUTSIDE RECORDS SUMMARY | 2025-04-17 11:41 | XMS_ITS | Clinical Summary ---
Author Organization [employer] Address [address] [place] [address] [address] [place] [address] Care Team Providers Care Glove Tagger Name Role Phone Frances Norris MD Primary Care Provider + Allergies No known active allergies Medications ascorbic acid (Vitamin C) 500 MG tabletIndicatio ns:Iron deficiency TAKE 1 TABLET BY MOUTH IN THE MORNING. 90 tablet 1 3 Active hydrocortisone 1 % ointment Apply topically 2 times daily. 28 g 1 5 Active Active Problems Problem Noted Date Diagnosed Date Diarrhea 11/15/2022 Assessment & Plan (11/15/2022 8:11 PM EDT): IBD? Patient needs to go back to GI, new referral in place. Rx Imodium to use prn Order labs to ro celiac disease, infectious, overgrowth etc. Keep meals diary. ELIJAH bruce new PCP in 1m , appt card given to patient Encounters Date Type Department Care Team Description 04/17/2025 9:15 AM EDT Office Visit [facility] MEDICINE [address] [place] [phone] Winifred Marsh CNM Vaginal odor (Primary Dx); Rash; Screening examination for venereal disease; Routine cervical smear 04/17/2025 Travel 04/16/2025 Telephone [facility] MED[facility]INE [address] [place] [phone] Winifred Marsh CNM chart prep 04/12/2025 Telephone [facility] [address] [place] [address] [phone] Frances Norris MD Nurse Triage from Last 3 Months Social History Tobacco Use Types Packs/Day Years Used Date Smoking Tobacco: Never Passive Smoke Exposure: Never Smokeless Tobacco: Never Tobacco Cessation:Counseling Given: No Alcohol Use Standard Drinks/Week Comments Never 0 [...] not to disclose 2022 6:18 PM EDT Last Filed Vital Signs Vital Sign Reading [...] Mass Index - - Plan of Treatment Upcoming Encounters Date Type Department Care Team (Late st Contact Info) Description 06/12/2025 10:30 AM EST Office Visit [facility] [address] [place] [address] Frances Norris MD [address] [place] [address] Health Maintenance Due Date Last Done Comments HIV Screening 1996 Alcohol/Substance Use Screening 2008 Hepatitis C Screening 2014 Pap Smear 2017 Depression Screening 12/16/2023 12/15/2022, 12/16/19 23 SDOH Screening 12/16/2023 12/15/2022 COVID-19 Vaccine ( season) 2025 Influenza Vaccine (#1) 2025 9, 09/09/2015, 04/05/2014, Additional history exists Disability Screening 04/17/2026 04/17/2025 Family Planning (PISQ) 04/17/2026 04/17/2025 Tobacco Screening 04/17/2026 04/17/2025 DTaP/Tdap/Td Vaccines (9 - Td or Tdap) 05/10/2031 05/10/2021, 06/19/2019, 07/03/2009, Additional history exists Zoster Vaccines (1 of 2) 2046 RSV Patients and Patients Aged 60 years or older (1 - 1-dose 75+ series) 2071 Hepatitis B Vaccines Completed 1996, 1996, 1996 HIB Vaccines Completed 10/28/1997, 12/02, 1996, Additional history exists IPV Vaccines Completed 10/17/2001, 12/02, 1996, Additional history exists HPV Vaccines Completed 09/04/2012, 01/01, 07/03/2009 Hepatitis A Vaccines Completed 09/26/2014, 01/16/20 11 Meningococcal Vaccine Completed 09/26/2014, 009 Meningococcal B Vaccine Aged Out No l onger eligible based on patient's age to complete this topic Pneumococcal Vaccine: Pediatrics (0 to 5 Years) and At-Risk Patients (6 to 49) Years Aged Out No longer eligible based on patient's age to complete this topic RSV under 20 months Aged Out No longe r eligible based on patient's age to complete this topic Rotavirus Vaccines Aged Out No longer eligible based on patient's age to complete this topic Procedures Procedure Name Priority Date/Time Associated Diagnosis Comments POCT WET MOUNT/WILDA Routine 04/17/2025 9: 58 AM EDT Vaginal odor from Last 3 Months Results * POCT fern test, vaginal fluid manually resulted (04/17/2025 9:58 AM EDT) WILDA Prep Negative Comment:pH 4.5, neg whiff, n eg clue, neg trich, neg yeast, neg wbc Vaginal Fluid Vaginal structure / Unknown 04/17/2025 9:58 AM EDT Winifred Marsh CNM POINT OF CARE TEST ENTER/ EDIT ORDERABLES Final Result from Last 3 Months Insurance [facility] C3 Care Teams Glove Tagger Relationship Specialty Start Date End Date Frances Norris MD [address] [place] [phone] PCP - General Internal Medicine 12/30/23
[2025-04-18 04:17] LABS: Syphilis Screen Nonreactive (Nonreactive)
[2025-04-18 05:06] LABS: HIV Num 1 0.05 S/CO (0.00-0.99); ~HepC Num1 0.12 S/CO (0.00-0.79); ~Hepatitis C Antibody Nonreactive (Nonreactive)
== END 2025-04-17 09:55 | disposition home or self-care (01) ==
LOC: HO.HHCL 09:54
PROVIDERS: PCP Internal Medicine; Visit Provider Advanced Practice Midwife
DX: Z11.4 Encounter for screening for human immunodeficiency virus [HIV] (principal); Z11.3 Encounter for screening for infections with a predominantly sexual mode of transmission; Z11.59 Encounter for screening for other viral diseases
CPT/HCPCS: 36415; 86780; 86803; 87389; 88175

== ENCOUNTER 2025-04-17 19:29 | Outpatient (REF) | payer MEDICAID, SELFPAY | END 2025-04-17 19:30 | disposition home or self-care (01) | LOC: HO.HHCLNP 19:29 | PROVIDERS: Visit Provider Advanced Practice Midwife | DX: Z13.89 Encounter for screening for other disorder (principal) | CPT/HCPCS: 88175 ==

== ENCOUNTER 2025-06-12 11:38 | Outpatient (REF) | payer MEDICAID, SELFPAY ==
[2025-06-12 13:54] LABS: MANUAL DIFF FLAG NO
[2025-06-12 13:57] LABS: Hematocrit 40.5 % (37.0-47.0); Hemoglobin 13.0 g/dl (12.0-16.0); Imm Gran Abs Auto 0.00 X10*3/uL (0.00-0.03); Imm Gran Pct Auto 0.0 % (0.0-0.4); Lymphocytes Absolute Auto 1.7 X10*3/uL (1.2-4.9); Mean Corpuscular HGB Conc 32.1 g/dl (31.0-35.0); Mean Corpuscular Hemoglobin 30.0 pg (27.0-33.0); Mean Corpuscular Volume 93.3 fL (80.0-98.0); NRBC Abs Auto 0.000 X10*3/uL (0.0-0.012); NRBC Pct Auto 0.0 /100WBC (0.0-0.2); Platelet Count 325 X10*3/uL (160-400); Red Blood Count 4.34 X10*6/uL (4.20-5.50); White Blood Count 5.2 X10*3/uL (4.8-10.8)
[2025-06-12 14:29] LABS: Anion Gap 6 (12-20); Blood Urea Nitrogen 12 mg/dL (9-16); Calcium 9.1 mg/dL (8.4-10.2); Carbon Dioxide 29 mmol/L (22-29); Chloride 106 mmol/L (96-108); Estimated Glomerular Filt Rate > 60; Potassium 3.7 mmol/L (3.3-5.1); Sodium 137 mmol/L (135-145)
== END 2025-06-12 11:39 ==
LOC: HO.HHCL 11:38
PROVIDERS: PCP Internal Medicine; Visit Provider Internal Medicine
DX: R19.7 Diarrhea, unspecified (principal)
CPT/HCPCS: 36415; 80048; 84443; 85025